=== PATIENT | male | born 1935 | race Caucasian/White ===

== ENCOUNTER 2022-08-09 09:19 | Emergency (ER) | payer MEDICARE, BC ==
[2022-08-09 09:50] LABS: BASOPHILS % (AUTO) 0.3 %; EOSINOPHILS # (AUTO) 0.1 10^3/uL (0.0-0.7); EOSINOPHILS % (AUTO) 1.1 %; HCT - HEMATOCRIT 48.9 % (42.0-52.0); HGB - HEMOGLOBIN 16.3 g/dL (14.0-18.0); LYMPHOCYTES # (AUTO) 1.7 10^3/uL (1.5-3.5); LYMPHOCYTES % (AUTO) 25.5 %; MEAN CORPUSCULAR HGB CONC 33.3 g/dL (32.0-36.0); MEAN CORPUSCULAR VOLUME 93.1 fL (80.0-94.0); MEAN PLATELET VOLUME 10.8 fL (7.4-11.4); MONOCYTES # (AUTO) 0.5 10^3/uL (0.0-1.0); MONOCYTES % (AUTO) 6.9 %; NEUTROPHILS # (AUTO) 4.3 10^3/uL (1.5-6.6); PLT - PLATELET COUNT 230 10^3/uL (130-450); RED BLOOD COUNT 5.25 10^6/uL (4.70-6.10); RED CELL DISTRIBUTION WIDTH 14.2 % (12.0-15.0); WHITE BLOOD COUNT 6.5 x10^3/uL (4.8-10.8)
[2022-08-09 10:06] LABS: ALBUMIN 3.9 g/dL (3.2-5.5); ALBUMIN/GLOBULIN RATIO 1.1 (1.0-2.2); CALCIUM 8.9 mg/dL (8.5-10.3); CREATININE 1.1 mg/dL (0.6-1.2); POTASSIUM 3.8 mmol/L (3.5-5.0); TOTAL PROTEIN 7.3 g/dL (6.7-8.2)
--- NOTE | 2022-08-09 10:11 | ED Physician Documentation ---
PD HPI CHEST PAIN - Stated complaint Stated Complaint: RAPID HR - Chief complaint Chief Complaint: Cardiac - History obtained from History obtained from: Patient - History of Present Illness Timing - onset: Yesterday Timing - onset during: Rest Timing - duration: Seconds Timing - details: Abrupt onset, Now resolved Pain level max: 0 Pain level now: 0 Quality: Other (palpatations not pain) Location: Substernal, Left chest Radiation: No: Jaw, Neck, Back, Abdominal, Left upper extremity, Right upper extremity Improved by: Other (distraction) Worsened by: Other (rest and concentration) Associated symptoms: Other (feels "off"). No: Shortness of air, Diaphoresis, Nausea, Vomiting, Feeling faint / dizzy, General Weakness, Palpitations, Cough Similar symptoms before: No diagnosis Recently seen: Not recently seen - Additional information Additional information: Rafita Colon is a 86-year-old male with history of hypertension who has been experiencing episodes of a palpitation in his chest that lasts seconds and this has been going on since yesterday afternoon he indicates that if he is active he does not notice this at all if he is resting and concentrating he can feel this. He does not have a prior episode of this that he can recall. Review of Systems Constitutional: denies: Fever, Chills, Myalgias, Fatigue Eyes: denies: Decreased vision Ears: denies: Ear pain Nose: denies: Rhinorrhea / runny nose, Congestion Throat: denies: Sore throat Cardiac: reports: Palpitations. denies: Chest pain / pressure, Pedal edema Respiratory: denies: Dyspnea, Cough GI: denies: Abdominal Pain, Nausea, Vomiting, Constipation, Diarrhea : denies: Dysuria, Frequency Skin: denies: Rash Musculoskeletal: denies: Neck pain, Back pain, Extremity pain Neurologic: denies: Generalized weakness, Focal weakness, Numbness PD PAST MEDICAL HISTORY - Past Medical History Cardiovascular: Hypertension, High cholesterol Respiratory: None Endocrine/Autoimmune: None GI: GERD : None HEENT: None Psych: None Musculoskeletal: None Derm: None - Past Surgical History Past Surgical History: Yes - Present Medications Home Medications: Ambulatory Orders Medication Instructions Recorded Confirmed Atorvastatin Calcium [Lipitor] 20 mg 08/18/13 08/18/13 Clopidogrel Bisulfate [Plavix] 08/18/13 08/18/13 Lisinopril 20 mg 08/18/13 08/18/13 Omeprazole [PriLOSEC] 20 mg 08/18/13 08/18/13 Triamcinolone Acetonide [Nasacort] 08/18/13 08/18/13 - Allergies Allergies/Adverse Reactions: Allergies Allergy/AdvReac Type Severity Reaction Status Date / Time aspirin Allergy Respiratory Verified 08/09/22 09:34 Penicillins Allergy Hives Verified 08/09/22 09:34 sulfacetamide sodium * Allergy Hives Verified 08/09/22 09:34 [From Sulfamide] - Social History Does the pt smoke?: No Smoking Status: Never smoker Does the pt drink ETOH?: No Does the pt have substance abuse?: No - Immunizations Immunizations are current?: Yes PD ED PE NORMAL - Vitals Vital signs reviewed: Yes (hypertensive mild ) - General General: Alert and oriented X 3, No acute distress, Well developed/nourished - HEENT HEENT: Atraumatic, PERRL, EOMI - Neck Neck: Supple, no meningeal sign, No bony TTP - Cardiac Cardiac: RRR, No murmur - Respiratory Respiratory: No respiratory distress, Clear bilaterally - Abdomen Abdomen: Normal bowel sounds, Soft, Non tender, Non distended, No organomegaly - Back Back: No CVA TTP, No spinal TTP - Derm Derm: Normal color, Warm and dry, No rash - Extremities Extremities: No deformity, No edema - Neuro Neuro: Alert and oriented X 3, 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, No motor deficit, No sensory deficit, Normal speech Eye Opening: Spontaneous Motor: Obeys Commands Verbal: Oriented GCS Score: 15 - Psych Psych: Normal mood, Normal affect Results - Vitals Vitals: Vital Signs - 24 hr 08/09/22 08/09/22 08/09/22 09:26 10:24 11:12 Temperature 35.9 C L Heart Rate 100 92 88 Respiratory 18 19 18 Rate Blood Pressure 161/84 H 147/64 H 154/73 H O2 Saturation 97 96 97 08/09/22 08/09/22 12:03 12:37 Temperature Heart Rate 96 77 Respiratory 24 16 Rate Blood Pressure 145/75 H 162/86 H O2 Saturation 100 98 Oxygen O2 Source Room air - EKG (time done) 0930 EKG releavant findings:: EKG personally interpreted by author of this note. Relevant findings are: Rate: Rate (enter#) (100) Rhythm: Sinus tachycardia [place]: Anterior hemiblock Intervals: RBBB Compare to prior EKG: Old EKG unavailable Computer interpretation: Disagree with computer (I do not see Alex in inferior leads I do not see STd in v1-3) 1149 EKG releavant findings:: EKG personally interpreted by author of this note. Relevant findings are: Rate: Rate (enter#) (100) Rhythm: Sinus tachycardia, Other (PVC's multiform) Intervals: RBBB Compare to prior EKG: Changed from prior EKG (SPT earlier today the number of pVC's is increased) Computer interpretation: Agree with computer - Labs Labs: Laboratory Tests 08/09/22 08/09/22 08/09/22 09:45 09:45 09:45 WBC 6.5 RBC 5.25 Hgb 16.3 Hct 48.9 MCV 93.1 MCH 31.0 MCHC 33.3 RDW 14.2 Plt Count 230 MPV 10.8 Neut # (Auto) 4.3 Lymph # (Auto) 1.7 [place] # (Auto) 0.5 Eos # (Auto) 0.1 Baso # (Auto) 0.0 Absolute Nucleated RBC 0.00 Nucleated RBC % 0.0 Sodium 136 Potassium 3.8 Chloride 101 Carbon Dioxide 26 Anion Gap 9.0 BUN 21 H Creatinine 1.1 Estimated GFR (MDRD) 63 L Glucose 138 H Calcium 8.9 Total Bilirubin 1.0 AST 24 ALT 21 Alkaline Phosphatase 63 Troponin I High Sens 4.9 Total Protein 7.3 Albumin 3.9 Globulin 3.4 Albumin/Globulin Ratio 1.1 Lipase 33 08/09/22 11:35 WBC RBC Hgb Hct MCV MCH MCHC RDW Plt Count MPV Neut # (Auto) Lymph # (Auto) [place] # (Auto) Eos # (Auto) Baso # (Auto) Absolute Nucleated RBC Nucleated RBC % Sodium Potassium Chloride Carbon Dioxide Anion Gap BUN Creatinine Estimated GFR (MDRD) Glucose Calcium Total Bilirubin AST ALT Alkaline Phosphatase Troponin I High Sens 6.3 Total Protein Albumin Globulin Albumin/Globulin Ratio Lipase Procedures - IVC sono (time) 1027 Bedside IVC sono: IVC measures (cm) (1,54), Euvolemia PD Medical Decision Making - ED course Reviewed Lab Results: We reviewed a complete blood count with a normal white blood cell count normal hemoglobin hematocrit and platelets. Chemistries were remarkable for a BUN of 21 otherwise all normal normal electrolytes kidney and liver function. High- sensitivity troponins were normal at 4.9 and 6.3. Initial electrocardiogram indicated ischemic changes which I was unable to appreciate. We initiated a complete cardiac work-up including a second troponin and second electrocardiogram and I am satisfied that there is no evidence of coronary syndrome. The patient's blood work is essentially benign with the BUN of 21 being in an indicator for dehydration. ED course: Rafita Colon presented to the emergency department with a sensation of palpitations in his chest. I was unable to correlate the palpitations with the PVCs that were being seen on the monitor. He indicated he had very brief fluttering like sensation in the chest and he believes that this may be related to his chest wall. He indicates that he has been weeding prior to all of this and feels that maybe he has muscle spasm in his chest wall. I agreed with the patient. We did find that he was dehydrated on interrogation of the inferior vena cava with POCUS and we administered a liter of saline. Departure - Departure Disposition: 01 Home, Self Care Clinical Impression: Palpitations Acute thoracic myofascial strain Qualifiers: Encounter type: initial encounter Qualified Code(s): S29.019A - Strain of muscle and tendon of unspecified wall of thorax, initial encounter Condition: Stable Instructions: ED Myofascial Pain Syndrome, ED Palpitations Follow-Up: [facility] [Provider Group] Comments: Rafita, today we did not find any evidence of atrial fibrillation. We did not see incidences of rapid heart rate. The fluttering feeling you are having in your chest may be like you think a chest wall muscle spasm. This should self resolve without problem. Feeling faint or lightheaded is not expected. You s hould expect complete resolution of the symptoms within 3 to 5 days and if you have increasing symptoms following that period of time that is not expected. You may have some pain associated with this. Discharge Date/Time: 08/09/22 12:51
--- NOTE | 2022-08-09 11:02 | XRAY Report ---
PROCEDURE: Chest 1 View X-Ray INDICATIONS: Chest pain TECHNIQUE: One view of the chest was acquired. COMPARISON: None. FINDINGS: Surgical changes and devices: None. Lungs and pleura: No pleural effusions or pneumothorax. Lungs are clear. Mediastinum: Mediastinal contours appear normal. Heart size is normal. Atherosclerotic vascular c alcification noted in the aortic arch. Bones and chest wall: No suspicious bony lesions. Overlying soft tissues appear unremarkable. IMPRESSION: No acute cardiopulmonary process. Reviewed by: Kam Rankin MD on 08/09/2022 10:00 AM BEE Approved by: Kam Rankin MD on 08/09/2022 10:00 AM BEE Station ID: [id number]
[2022-08-09 12:41] VITALS: BP 162/86
== END 2022-08-09 12:51 | disposition home or self-care (01) ==
LOC: ED 09:19
DX: R00.2 Palpitations (principal); S29.019A Strain of muscle and tendon of unspecified wall of thorax, initial encounter; X58.XXXA Exposure to other specified factors, initial encounter; Y93.H2 Activity, gardening and landscaping; E86.0 Dehydration
CPT/HCPCS: 36415; 80053; 83690; 84484; 85025; 93005; 99283; 99284